=== PATIENT | male | born 1995 | race Caucasian/White ===

== ENCOUNTER 2018-02-16 14:50 | Emergency (ER) | payer OTHER ==
--- NOTE | 2018-02-16 14:46 | CT ---
EXAMINATION TYPE: CT abdomen pelvis wo con DATE OF EXAM: 02/16/2018 COMPARISON: NONE HISTORY: Midline abdominal pain CT DLP: 1729 mGycm Automated exposure control for dose reduction was used. TECHNIQUE: Helical acquisition of images was performed from the lung bases through the pelvis. FINDINGS: Evaluation of the hollow and solid viscera are limited without the utilization of intraveno us or oral contrast. LUNG BASES: No significant abnormality is appreciated. LIVER/GB: Hepatic parenchyma is diffusely hypoattenuated in comparison to that of the spleen, most co mmonly seen in hepatic steatosis. No gross evidence of hepatic mass is seen. No intrahepatic biliary ductal dilatation. Geographic area of probable more focal fatty is seen within segment 7 of the liver . Lack of intravenous contrast and hepatic steatosis both limit evaluation for underlying hepatic mas ses. Infiltration No cholelithiasis PANCREAS: No significant abnormality is seen. SPLEEN: No significant abnormality is seen. No splenomegaly. ADRENALS: No significant abnormality is seen. No thickening or nodularity. KIDNEYS: Unremarkable morphology. No nephrolithiasis. FREE AIR: No free air is visualized ADENOPATHY: Scattered prominent but nonenlarged right lower quadrant likely reactive lymph nodes are seen in keeping with the right lower quadrant fat stranding changes. REPRODUCTIVE ORGANS: No significant abnormality is seen URINARY BLADDER: No significant abnormality is seen. OSSEOUS STRUCTURES: No significant abnormality is seen. BOWEL: No significant abnormality is seen. Pericolonic fat stranding is seen surrounding a solitary ascending colonic diverticulum containing inspissated colloid. Alternatively hemorrhagic Meckel's div erticulum should be considered. No evidence of pericolonic fluid collection to suggest abscess or sadiq e air. There is reactive thickening of the ascending colon bowel wall. No proximal dilatation to sugg est obstruction. The appendix is air-filled and within normal limits. Findings suggest best demonstra melchor on the coronal images such as series 5 image 55. IMPRESSION: FINDINGS COMPATIBLE WITH ACUTE UNCOMPLICATED DESCENDING COLONIC DIVERTICULITIS OR MECKEL'S DIVERTICUL ITIS. NO EVIDENCE OF ADJACENT APPENDICITIS OR TERMINAL ILEITIS. NO FREE AIR OR PERICOLONIC FLUID DEVORAH ECTION. THIS ALSO DOES NOT APPEAR AN OMENTAL INFARCT OR EPIPLOIC APPENDAGITIS. FINDINGS WERE COMMU NICATED WITH THE ORDERING PROVIDER AT [address] THOMAS ON 02/16/2018. THE PATIENT WILL BE INSTRUCTED TO PROCEED TO THE ER.
[2018-02-16] MEDS ORDERED: SODIUM CHLORIDE 0.9% 1,000 ML IV STA (15:32)
--- NOTE | 2018-02-16 15:36 | ED ---
General Adult HPI - General Chief complaint: Abdominal Pain Stated complaint: Abd.pain Time Seen by Provider: 02/16/18 15:25 Source: patient, RN notes reviewed Mode of arrival: ambulatory Limitations: no limitations - History of Present Illness Initial comments: Patient's a 22-year-old male presented to the emergency room today by outpatient CT for abdominal pain. Patient does not that his had abdominal pain for over the last 2-3 days. Patient does admit that located lower abdomen radiates out. States since coming ago at times. Does admit that at times seems to be worse with movements. Patient states that he has not had any other associated symptoms particularly family doctor earlier today and was recommended to have a CAT scan. He did go to computed tomography scan from CAT scan was directed here to the emergency room. Patient denies any other complaints. Patient denies any recent fever, chills, shortness of breath, chest pain, back pain, nausea or vomiting, numbness or tingling, dysuria or hematuria , constipation or diarrhea, headaches or visual changes, or any other complaints. - Related Data Home Medications Medication Instructions Recorded Confirmed Butalb/APAP/Caff 50-325-40Mg 1 - 2 tab PO Q4H PRN 02/16/18 02/16/18 [Fioricet 50-325-40] Propranolol LA [Inderal LA] 60 mg PO BID 02/16/18 02/16/18 Previous Rx's Medication Instructions Recorded Ciprofloxacin HCl [Cipro] 500 mg PO Q12HR #14 day 02/16/18 metroNIDAZOLE [Flagyl] 500 mg PO TID #21 tab 02/16/18 Allergies Allergy/AdvReac Type Severity Reaction Status Date / Time No Known Allergies Allergy Verified 02/16/18 16:16 Review of Systems ROS Statement: Those systems with pertinent positive or pertinent negative responses have been documented in the HPI. ROS Other: All systems not noted in ROS Statement are negative. Past Medical History Past Medical History: No Reported History History of Any Multi-Drug Resistant Organisms: None Reported Past Surgical History: No Surgical Hx Reported Past Psychological History: No Psychological Hx Reported Smoking Status: Never smoker Past Alcohol Use History: Occasional Past Drug Use History: None Reported General Exam - General Exam Comments Initial Comments: General: The patient is awake and alert, in no distress, and does not appear acutely ill. Eye: Pupils are equal, round and reactive to light, extra-ocular movements are intact. No nystagmus. There is normal conjunctiva bilaterally. No signs of icterus. Ears, nose, mouth and throat: There are moist mucous membranes and no oral lesions. Neck: The neck is supple, there is no tenderness or JVD. Cardiovascular: There is a regular rate and rhythm. No murmur, rub or gallop is appreciated. Respiratory: Lungs are clear to auscultation, respirations are non-labored, breath sounds are equal. No wheezes, stridor, rales, or rhonchi. Gastrointestinal: Soft, non-distended, non-tender abdomen without masses or organomegaly noted. There is no rebound or guarding present. No CVA tenderness. Musculoskeletal: Normal ROM, no tenderness. Strength 5/5. Sensation intact. Neurological: A&O x 3. CN II-XII intact, There are no obvious motor or sensory deficits. Coordination appears grossly intact. Speech is normal. Skin: Skin is warm and dry and no rashes or lesions are noted. Psychiatric: Cooperative, appropriate mood & affect, normal judgment. Limitations: no limitations Course Vital Signs 02/16/18 15:09 Temperature 98.6 F Pulse Rate 77 Respiratory 18 Rate Blood Pressure 126/79 O2 Sat by Pulse 98 Oximetry Medical Decision Making - Medical Decision Making Patient's labs been reviewed shows atrophic thousand white count. Patient resting comfortably. His abdomen is soft on palpation. Patient no fever. CT of the abdomen and pelvis does reveal evidence of a diverticulitis. Case discussed with attending physician Dr. Dale. At this time patient was given options of staying in the hospital versus outpatient treatment. He states he would like to try outpatient. He'll be started on oral medications of ciprofloxacin and Flagyl. Advised to follow-up with his family doctor next 2 days return here to the emergency room if any symptoms increase or worsen. - Lab Data Result diagrams: 02/16/18 15:46 02/16/18 15:46 Lab Results 02/16/18 02/16/18 Range/Units 15:46 15:46 WBC 12.7 H (3.8-10.6) k/uL RBC 5.94 H (4.30-5.90) m/uL Hgb 17.7 H (13.0-17.5) gm/dL Hct 50.4 (39.0-53.0) % MCV 84.9 (80.0-100.0) fL MCH 29.8 (25.0-35.0) pg MCHC 35.1 (31.0-37.0) g/dL RDW 12.5 (11.5-15.5) % Plt Count 251 (150-450) k/uL Neutrophils % 81 % Lymphocytes % 10 % Monocytes % 5 % Eosinophils % 1 % Basophils % 1 % Neutrophils # 10.3 H (1.3-7.7) k/uL Lymphocytes # 1.3 (1.0-4.8) k/uL Monocytes # 0.6 (0-1.0) k/uL Eosinophils # 0.2 (0-0.7) k/uL Basophils # 0.1 (0-0.2) k/uL Sodium 140 (137-145) mmol/L Potassium 4.3 (3.5-5.1) mmol/L Chloride 101 (98-107) mmol/L Carbon Dioxide 25 (22-30) mmol/L Anion Gap 14 mmol/L BUN 16 (9-20) mg/dL Creatinine 1.08 (0.66-1.25) mg/dL Est GFR (CKD-EPI)AfAm >90 (>60 ml/min/1.73 sqM) Est GFR (CKD-EPI)NonAf >90 (>60 ml/min/1.73 sqM) Glucose 91 (74-99) mg/dL Calcium 9.9 (8.4-10.2) mg/dL Total Bilirubin 1.8 H (0.2-1.3) mg/dL AST 36 (17-59) U/L ALT 64 (21-72) U/L Alkaline Phosphatase 74 (38-126) U/L Total Protein 7.6 (6.3-8.2) g/dL Albumin 4.6 (3.5-5.0) g/dL Disposition Clinical Impression: Acute diverticulitis Disposition: HOME SELF-CARE Condition: Good Instructions: Diverticulitis (ED) Additional Instructions: Please use medication as discussed. Please follow-up with family doctor in the next 2 days of symptoms have not improved. Please return to emergency room if the symptoms increase or worsen or for any other concerns. Prescriptions: Ciprofloxacin HCl [Cipro] 500 mg PO Q12HR #14 day metroNIDAZOLE [Flagyl] 500 mg PO TID #21 tab Is patient prescribed a controlled substance at d/c from ED?: No Referrals: Pravin Walker MD [Primary Care Provider] - 1-2 days Time of Disposition: 16:22
[2018-02-16] MEDS ORDERED: PIPERACILLIN-TAZOBACTAM 3.375 GM in DEXTROSE/WATER 1 50ML.BAG IVPB STA (15:58)
[2018-02-16 16:02] LABS: Basophils # (A) 0.1 k/uL (0-0.2); Basophils % (A) 1 %; Eosinophils # (A) 0.2 k/uL (0-0.7); Eosinophils % (A) 1 %; HCT 50.4 % (39.0-53.0); HGB 17.7 gm/dL (13.0-17.5); Lymphocytes # (A) 1.3 k/uL (1.0-4.8); Lymphocytes % (A) 10 %; MCH 29.8 pg (25.0-35.0); MCHC 35.1 g/dL (31.0-37.0); MCV 84.9 fL (80.0-100.0); Mean Platelet Volume 7.6; Monocytes # (A) 0.6 k/uL (0-1.0); Monocytes % (A) 5 %; Neutrophils # (A) 10.3 k/uL (1.3-7.7); Neutrophils % (A) 81 %; Platelet Count 251 k/uL (150-450); RBC 5.94 m/uL (4.30-5.90); RDW 12.5 % (11.5-15.5); WBC 12.7 k/uL (3.8-10.6)
[2018-02-16 16:04] LABS: ALT 64 U/L (21-72); AST 36 U/L (17-59); Albumin 4.6 g/dL (3.5-5.0); Alkaline Phosphatase 74 U/L (38-126); Anion Gap 14 mmol/L; Blood Urea Nitrogen 16 mg/dL (9-20); Calcium 9.9 mg/dL (8.4-10.2); Carbon Dioxide 25 mmol/L (22-30); Chloride 101 mmol/L (98-107); Glucose 91 mg/dL (74-99); Potassium 4.3 mmol/L (3.5-5.1); Sodium 140 mmol/L (137-145); Total Bilirubin 1.8 mg/dL (0.2-1.3); Total Protein 7.6 g/dL (6.3-8.2)
[2018-02-16 16:36] VITALS: BP 138/82; PULSE 70; RESP 16; TEMP 98.3
[2018-02-17] MEDS ORDERED: PIPERACILLIN-TAZOBACTAM 3.375 GM in DEXTROSE/WATER 1 50ML.BAG IVPB SCH
== END 2018-02-16 16:55 | disposition home or self-care (01) ==
LOC: EC 14:50 → EDSTATUS 18:00
DX: K57.92 Diverticulitis of intestine, part unspecified, without perforation or abscess without bleeding (principal); Z79.899 Other long term (current) drug therapy; Z53.8 Procedure and treatment not carried out for other reasons
CPT/HCPCS: 36415; 74176; 80053; 80061; 82150; 83690; 84439; 84443; 85025; 87040; 96360; 99284